=== PATIENT | female | born 2000 | race Two or more races ===

== ENCOUNTER 2020-12-23 15:54 | Inpatient (IN) | payer MEDICAID ==
[~2020-12-23] VITALS: Ht 162.6 cm; Wt 80.6 kg
[~2020-12-23 15:54] MED LIST: INSLANTI SC; INSLISPI SC
[2020-12-23] MEDS ORDERED: InsuLIN R (HUMAN) 100 UNITS in SODIUM CHL 0.9% 99 ML IV SCH (16:30)
[2020-12-23] MEDS ORDERED: InsuLIN REG 1unit/0.01ml Soln (100units/ml) IV ONE (16:30)
[2020-12-23] MEDS ORDERED: INSULIN LANTUS (GLARGINE) 1 /0.01ml (100units/ml) SC ONE (16:30)
[2020-12-23] MEDS: ACCU-CHEK COMFORT CURVE STRIP VI SCH ×3 (16:30→23:50)
[2020-12-23] MEDS ORDERED: SODIUM CHLORIDE 0.9% 1,000 ML IVB ONE (16:30)
[2020-12-23] MEDS ORDERED: DEXTROSE (50%) 50ML SYRG IV PRN ×2 (16:30→19:15)
[2020-12-23 17:05] LABS: Basophils # (auto) 0 10 ^3/uL (0-0.2); Basophils % (auto) 0.2 % (0.0-2.0); Eosinophils # (auto) 0 10 ^3/uL (0-0.8); Hematocrit 38.8 % (36.0-46.0); Hemoglobin 12.9 g/dL (12.2-16.2); Lymphocytes % (auto) 9.3 % (10.0-50.0); Mean Corpuscular Hemoglobin 28.2 pg (28.0-32.0); Mean Corpuscular Hgb Conc. 33.3 g/dL (32.0-36.0); Mean Corpuscular Volume 84.8 fL (80.0-100.0); Monocytes # (auto) 0.3 10 ^3/uL (0-1.3); Monocytes % (auto) 2.4 % (0.0-12.0); Neutrophils # (auto) 9.9 10 ^3/uL (1.6-8.6); Neutrophils % (auto) 88.1 % (37.0-80.0); Nucleated Red Blood Cells % 0.1 %; Red Blood Cells 4.58 10^6/uL (4.0-5.20); Red Cell Distribution Width 13.1 % (11.8-14.3); White Blood Cell 11.2 10^3/uL (4.4-10.8)
[2020-12-23 17:48] LABS: Anion Gap 19 (5-15); Blood Urea Nitrogen 14 mg/dL (7-18); Calcium 9.1 mg/dL (8.5-10.1); Carbon Dioxide 14 mmol/L (21-32); Chloride 101 mmol/L (98-107); Glucose 222 mg/dL (74-106); Potassium 3.1 mmol/L (3.5-5.1); Sodium 134 mmol/L (136-145)
[2020-12-23 17:53] LABS: Alanine Aminotransferase 26 U/L (13-56); Alkaline Phosphatase 82 U/L (45-117); Aspartate Aminotransferase 11 U/L (15-37); BUN/Creatinine Ratio 24.1; Bilirubin, Total 0.6 mg/dL (0.2-1.0); Blood Alcohol < 3.0 mg/dL (0-5); GFR African American 169 mL/min; GFR Non-African American 139 mL/min; Total Protein 8.2 g/dL (6.4-8.2)
[2020-12-23] MEDS ORDERED: NITROGLYCERIN 0.4 MG SL TAB SL PRN ×2 (18:15→19:15)
[2020-12-23] MEDS: SOD CHL 0.9%/ KCL 20MEQ 1,000 ML IV SCH (18:15)
[2020-12-23] MEDS ORDERED: MORPHINE SULFATE INJECTION 2 MG/ML SYRG IV PRN ×3 (18:15→19:15)
[2020-12-23] MEDS: METOCLOPRAMIDE HCL 5MG/ml INJ 2ml VIAL IV PRN (18:46)
[2020-12-23] MEDS ORDERED: ACETAMINOPHEN 325 MG TAB PO PRN (19:15)
[2020-12-23] MEDS ORDERED: HYDROcodone-ACET 5/325MG TAB PO PRN (19:15)
[2020-12-23] MEDS ORDERED: SODIUM CHLORIDE 0.9% 2,000 ML IV ONE (19:15)
[2020-12-23] MEDS ORDERED: cefTRIAXone 1GM/50ML D5W 50 ML IV ONE (19:15)
[2020-12-23] MEDS ORDERED: DOCUSATE SOD 100 MG CAP PO PRN (19:15)
[2020-12-23] MEDS ORDERED: LORazepam 0.5 MG TAB PO PRN (19:15)
[2020-12-23] MEDS ORDERED: ALUM & MAG HYDROX-SIMETH LIQ(MAALOX) 30 ML PO PRN (19:15)
[2020-12-23] MEDS ORDERED: FAMOTIDINE (10MG/ML) 2ML VL IV ONE (19:15)
[2020-12-23] MEDS ORDERED: ONDANSETRON HCL 4 MG/2 ML VIAL IV PRN (19:15)
[2020-12-23] MEDS ORDERED: metroNIDAZOLE 500MG/100ML 100 ML IV ONE (20:00)
[2020-12-23 20:21] LABS: Cholesterol 229 mg/dL (< 200); HDL Cholesterol 67 mg/dL (40-59); LDL Cholesterol 133 mg/dL (< 100); Triglycerides 120 mg/dL (< 150)
[2020-12-23 21:47] LABS: Albumin 3.4 g/dL (3.4-5.0); Calcium 7.8 mg/dL (8.5-10.1); Potassium 3.7 mmol/L (3.5-5.1)
[2020-12-23 21:50] LABS: Bilirubin, Total 0.4 mg/dL (0.2-1.0); Total Protein 7.4 g/dL (6.4-8.2)
[2020-12-23] MEDS: ATORVASTATIN 20 MG TAB PO SCH (22:00)
[2020-12-23] MEDS: InsuLIN REG 1unit/0.01ml Soln (100units/ml) SC SCH (23:44)
[2020-12-24] MEDS: SOD CHL 0.9%/ KCL 20MEQ 1,000 ML IV SCH ×3 (02:42→21:33)
[2020-12-24] MEDS: METOCLOPRAMIDE HCL 5MG/ml INJ 2ml VIAL IV PRN (05:15)
[2020-12-24] MEDS: InsuLIN REG 1unit/0.01ml Soln (100units/ml) SC SCH ×3 (06:00→17:45)
[2020-12-24] MEDS: metroNIDAZOLE 500MG/100ML 100 ML IV SCH ×3 (06:07→21:31)
[2020-12-24] MEDS: ACCU-CHEK COMFORT CURVE STRIP VI SCH ×3 (06:08→17:43)
[2020-12-24] MEDS: FAMOTIDINE (10MG/ML) 2ML VL IV SCH ×2 (07:52→21:31)
[2020-12-24] MEDS: cefTRIAXone 1GM/50ML D5W 50 ML IV SCH (07:52)
[2020-12-24] MEDS: ASPirin 81 mg TAB PO SCH (07:52)
[2020-12-24] MEDS: ENOXAPARIN SOD 40 MG/0.4 ML SYRINGE SC SCH (07:53)
[2020-12-24] MEDS ORDERED: SODIUM CHLORIDE 0.9% 1,000 ML IV ONE (08:00)
[2020-12-24] MEDS ORDERED: INSULIN LANTUS (GLARGINE) 1 /0.01ml (100units/ml) SC SCH (10:00)
[2020-12-24] MEDS ORDERED: INSLISPI SC (17:51)
[2020-12-24] MEDS ORDERED: INSLANTI SC (17:51)
[2020-12-24] MEDS ORDERED: TRAZ100T3 PO (17:51)
[2020-12-24] MEDS ORDERED: FLUO-125 PO (17:51)
[2020-12-24] MEDS: ATORVASTATIN 20 MG TAB PO SCH (21:32)
[2020-12-24 22:00] VITALS: BP 107/67
[2020-12-25] MEDS: ACCU-CHEK COMFORT CURVE STRIP VI SCH ×3 (00:17→11:49)
[2020-12-25] MEDS: InsuLIN REG 1unit/0.01ml Soln (100units/ml) SC SCH ×3 (00:17→11:50)
[2020-12-25] MEDS: SOD CHL 0.9%/ KCL 20MEQ 1,000 ML IV SCH ×2 (03:38→09:05)
[2020-12-25 05:00] VITALS: BP 107/69
[2020-12-25] MEDS: metroNIDAZOLE 500MG/100ML 100 ML IV SCH ×2 (06:15→13:08)
[2020-12-25 09:00] VITALS: BP 113/74
[2020-12-25] MEDS: cefTRIAXone 1GM/50ML D5W 50 ML IV SCH (09:04)
[2020-12-25] MEDS: ENOXAPARIN SOD 40 MG/0.4 ML SYRINGE SC SCH (09:05)
[2020-12-25] MEDS: ASPirin 81 mg TAB PO SCH (09:05)
[2020-12-25] MEDS: FAMOTIDINE (10MG/ML) 2ML VL IV SCH (09:05)
[2020-12-25 13:13] VITALS: BP 106/71
[2020-12-25 13:14] LABS: Basophils # (auto) 0 10 ^3/uL (0-0.2); Basophils % (auto) 0.6 % (0.0-2.0); Eosinophils # (auto) 0 10 ^3/uL (0-0.8); Eosinophils % (auto) 0.5 % (0.0-7.0); Hematocrit 40.4 % (36.0-46.0); Hemoglobin 13.3 g/dL (12.2-16.2); Lymphocytes # (auto) 1.9 10 ^3/uL (0.4-5.4); Lymphocytes % (auto) 23.6 % (10.0-50.0); Mean Corpuscular Hemoglobin 28.9 pg (28.0-32.0); Mean Corpuscular Hgb Conc. 32.9 g/dL (32.0-36.0); Mean Corpuscular Volume 87.7 fL (80.0-100.0); Monocytes # (auto) 0.5 10 ^3/uL (0-1.3); Monocytes % (auto) 6.2 % (0.0-12.0); Neutrophils # (auto) 5.6 10 ^3/uL (1.6-8.6); Neutrophils % (auto) 69.1 % (37.0-80.0); Nucleated Red Blood Cells % 0.1 %; Red Blood Cells 4.61 10^6/uL (4.0-5.20); Red Cell Distribution Width 13.7 % (11.8-14.3); White Blood Cell 8.1 10^3/uL (4.4-10.8)
[2020-12-25 13:47] LABS: Calcium 8.7 mg/dL (8.5-10.1); Magnesium 2.3 mg/dL (1.6-2.6); Potassium 3.7 mmol/L (3.5-5.1)
[2020-12-25 13:50] LABS: BUN/Creatinine Ratio 18.4
== END 2020-12-25 16:40 | disposition home or self-care (01) | DRG 249 ==
LOC: ER 15:54 → TELE 18:09 → TELE-WESTW 12-24 17:11 → WEST WING 12-24 17:12
PROVIDERS: ADMIT Hospitalist; ATTEND Internal Medicine
DX: K52.9 Noninfective gastroenteritis and colitis, unspecified (principal); R65.10 Systemic inflammatory response syndrome (SIRS) of non-infectious origin without acute organ dysfunction; E66.9 Obesity, unspecified; E78.5 Hyperlipidemia, unspecified; E87.6 Hypokalemia; Z79.4 Long term (current) use of insulin; Z82.49 Family history of ischemic heart disease and other diseases of the circulatory system; Z83.3 Family history of diabetes mellitus; Z91.19 Patient's noncompliance with other medical treatment and regimen; Z68.30 Body mass index [BMI] 30.0-30.9, adult; Z20.822 Contact with and (suspected) exposure to COVID-19
CPT/HCPCS: 36415; 71045; 80048; 80053; 80061; 80320; 82962; 83036; 83735; 84484; 85025; 87040; 87081; 87426; 93005; 96365; 96375; 99291; G0378; J0696; J1815; J3490